=== PATIENT | female | born 1955 ===

== ENCOUNTER 2021-07-19 08:33 | Day surgery (SDC) | payer OTHER ==
[2021-07-19] MEDS ORDERED: TYLENOL ARTHRI650 MG PO (13:17)
[2021-07-19] MEDS ORDERED: MIRALAX17 GM PO (13:17)
[2021-07-19] MEDS ORDERED: ULTRAM50 MG PO (13:17)
[2021-07-19] MEDS ORDERED: NEURONTIN300 MG PO (13:17)
== END 2021-07-19 20:00 | disposition home or self-care (01) ==
LOC: CIR.AMB 08:33
PROVIDERS: ATTEND Surgery
DX: K43.6 Other and unspecified ventral hernia with obstruction, without gangrene (principal); K42.0 Umbilical hernia with obstruction, without gangrene; Z20.822 Contact with and (suspected) exposure to COVID-19